=== PATIENT | male | born 1990 | race Caucasian/White ===

== ENCOUNTER → 2019-02-17 | Outpatient (REF) | payer OTHER ==
[~2019-02-17] MED LIST: IBU800 PO
[2019-02-17 11:44] LABS: PLATELET COUNT, AUTOMATED 202 K/uL (150-450)
== END ==
PROVIDERS: ATTEND Nurse Practitioner Family
DX: R50.81 Fever presenting with conditions classified elsewhere (principal); R11.0 Nausea
CPT/HCPCS: 82040; 82247; 82310; 82374; 82435; 82565; 82947; 84075; 84132; 84155; 84295; 84450; 84460; 84520; 85025